=== PATIENT | female | born 1975 | race African-American/Black ===

== ENCOUNTER 2018-02-05 15:51 | Emergency (ER) | payer OTHER ==
[~2018-02-05] VITALS: Ht 170.2 cm; Wt 104.3 kg
[2018-02-05] MEDS ORDERED: HYDROcodone/APAP 5/325MG 1 TAB TABLET PO ONE (17:00)
[2018-02-05] MEDS ORDERED: IPRATRPIUM/ALBUTEROL 0.5/2.5MG 3 ML NEBU. NEB ONE (17:00)
[2018-02-05] MEDS ORDERED: HYDR115S2 PO (17:03)
[2018-02-05] MEDS ORDERED: AZIT250T PO (17:03)
--- NOTE | 2018-02-05 17:03 | PHYS DOC ---
Past History Past Medical History: No Pertinent History Past Surgical History: Alcohol Use: Rarely Drug Use: None Adult General Chief Complaint Chief Complaint: sore throat and nasal congestion HPI HPI Patient is a 43 year old female who presents with obtaining of his of congestion , sore throat, cough and shortness of breath for the last 3 days that gradually getting worse. Patient denies sick contact, fever and chills, nausea and vomiting, diarrhea and constipation, urinary symptom. Patient had a recent road trip to [place] and became sick the last night of her stay in [place]. Patient states she smokes half a pack of cigarettes a day. Review of Systems Review of Systems Constitutional: Denies fever or chills [] Eyes: Denies change in visual acuity, redness, or eye pain [] HENT: Reports nasal congestion or sore throat Respiratory: Reports cough and shortness of breath Cardiovascular: No additional information not addressed in HPI [] GI: Denies abdominal pain, nausea, vomiting, bloody stools or diarrhea [] : Denies dysuria or hematuria [] Musculoskeletal: Denies back pain or joint pain [] Integument: Denies rash or skin lesions [] Neurologic: Denies headache, focal weakness or sensory changes [] Endocrine: Denies polyuria or polydipsia [] All other systems were reviewed and found to be within normal limits, except as documented in this note. Current Medications Current Medications Current Medications Medications (Trade) Dose Ordered Sig/Penny Start Time Stop Time Status Last Admin Dose Admin Acetaminophen/ Hydrocodone Bitart (Lortab 5/325) 1 tab 1X ONCE 02/05/18 17:00 02/05/18 17:01 Albuterol/ Ipratropium (Duoneb) 3 ml 1X ONCE 02/05/18 17:00 02/05/18 17:01 Allergies Allergies Allergies Coded Allergies Type Severity Reaction Last Updated Verified No Known Drug Allergies 12/28/15 No Physical Exam Physical Exam Constitutional: Well developed, well nourished, mild distress, non-toxic appearance. [] HENT: Normocephalic, atraumatic, bilateral external ears normal, oropharynx moist, pharyngeal erythema, no oral exudates, nose normal. [] Eyes: PERRLA, EOMI, conjunctiva normal, no discharge. [] Neck: Normal range of motion, no tenderness, supple, no stridor. [] Cardiovascular:Heart rate regular rhythm, no murmur [] Lungs & Thorax: Bilateral breath sounds clear to auscultation [] Abdomen: Bowel sounds normal, soft, no tenderness, no masses, no pulsatile masses. [] Skin: Warm, dry, no erythema, no rash. [] Back: No tenderness, no CVA tenderness. [] Extremities: No tenderness, no cyanosis, no clubbing, ROM intact, no edema. [] Neurologic: Alert and oriented X 3, normal motor function, normal sensory function, no focal deficits noted. [] Psychologic: Affect normal, judgement normal, mood normal. [] Current Patient Data Vital Signs Vital Signs Date Time Temp Pulse Resp B/P (MAP) Pulse Ox O2 Delivery O2 Flow Rate FiO2 02/05/18 15:55 98.1 89 20 100 Room Air EKG EKG [] Radiology/Procedures Radiology/Procedures [] Course & Med Decision Making Course & Med Decision Making discharge: I've spoken with the patient and/or caregivers. I've explained the patient's condition, diagnosis and treatment plan based on information available to me at this time. I've answered the patient's and/or caregivers questions and addressed any concerns. The patient and/or caregivers have a good understanding the patient's diagnosis, condition and treatment plan as can be expected at this point. Vital signs have been stabilized. The patient's condition is stable for discharge from the emergency department. The patient will pursue further outpatient evaluation with her primary care provider or other designated consulting physician as outlined in the discharge instructions. Patient and/or caregivers are agreeable to this plan of care and follow-up instructions have been explained in detail. The patient and/or caregivers have received these instructions in written format and expressed understanding of these discharge instructions. The patient and her caregivers are aware that if any significant change in condition or worsening of symptoms should prompt him to immediately return to this of the closest emergency department. If an emergent department is not readily available I would encourage him to call 911. Lisbeth Disclaimer Lisbeth Disclaimer This electronic medical record was generated, in whole or in part, using a voice recognition dictation system. Departure Departure: Impression: Primary Impression: Upper respiratory infection Additional Impressions: Tobacco abuse Tobacco abuse counseling Disposition: HOME, SELF-CARE (at 1715) Condition: STABLE Referrals: PCP,NO (PCP) Patient Instructions: Smoking Cessation, Tips For Success, Upper Respiratory Infection, Adult Additional Instructions: Drink plenty of liquids Follow-up with your primary care physician in 3-5 days Return to ER if not getting better Scripts Hydrocodone/Chlorphen P-Stirex (Tussionex Pennkinetic Susp) 115 Ml Ayleen.er.12h 5 ML PO BID, #60 ML Prov: BRINDA RODNEY MD 02/05/18 Azithromycin (ZITHROMAX) 250 Mg Tablet 1 PKG PO UD, #1 PKG Prov: BRINDA RODNEY MD 02/05/18 Problem Qualifiers BRINDA RODNEY MD Feb 05, 2018 17:03
[2018-02-05 18:39] VITALS: BP 135/69
== END 2018-02-05 17:34 | disposition home or self-care (01) ==
LOC: ER 15:51
DX: J06.9 Acute upper respiratory infection, unspecified (principal); F17.210 Nicotine dependence, cigarettes, uncomplicated; Z71.6 Tobacco abuse counseling
CPT/HCPCS: 94640; 99283; J7620

== ENCOUNTER 2018-04-24 19:02 | Emergency (ER) | payer OTHER ==
[~2018-04-24] VITALS: Ht 167.6 cm; Wt 114.1 kg
[~2018-04-24 19:02] MED LIST: AZIT250T PO; HYDR115S2 PO
--- NOTE | 2018-04-24 19:07 | ED.ADGEN ---
Past History Past Medical History: No Pertinent History, GERD, Other Past Surgical History: Smoking: Cigarettes Alcohol Use: Rarely Drug Use: None Adult General Chief Complaint Chief Complaint ".. I ve been having this Rt. upper stomach and chest pain..,. it been much worse the last couple to 3 days.. but really bad tonight.... My dad had colon cancer... so I got scared...".. " I do have times I get constipated..."... " but I did get a stool to day and had some gas..." HPI HPI Patient is a 43 year old female who presents with above hx and complaints of right upper abdomen pain that radiates to her right shoulder. Patient has had this pain before but seemed more severe tonight. Patient does report frequent episodes of constipation particularly when she is not careful about her diet. Patient did have [place] food at 1500 hrs. today. No history of bad food intake. No history of travel. No history of specific ill contacts. Patient does smoke. Patient has had a previous colonoscopy and EGD some years ago. These tests were reportedly negative. Patient has had a previous . No history of trauma. Denies any vaginal discharge or history of STDs. Patient father had a history of frequent polyps and colon cancer. There is no family history in close relatives of known gallbladder disease. Patient has been taking Tylenol for her pain but tonight it did not relieve her pain. Review of Systems Review of Systems Constitutional: Denies fever or chills [] Eyes: Denies change in visual acuity, redness, or eye pain [] HENT: Denies nasal congestion or sore throat [] Respiratory: Denies cough or shortness of breath [] Cardiovascular: No additional information not addressed in HPI [] GI:Complaints of abdominal pain, nausea. Denies vomiting, bloody stools or diarrhea [] : Denies dysuria or hematuria [] Musculoskeletal: Denies back pain or joint pain [] Integument: Denies rash or skin lesions [] Neurologic: Denies headache, focal weakness or sensory changes [] Endocrine: Denies polyuria or polydipsia [] All other systems were reviewed and found to be within normal limits, except as documented in this note. Family History Family History Father has had colon cancer Current Medications Current Medications Current Medications Medications (Trade) Dose Ordered Sig/Penny Start Time Stop Time Status Last Admin Dose Admin Ceftriaxone Sodium 1 gm/ Sodium Chloride 50 ml @ 100 mls/hr 1X ONCE 04/24/18 22:45 04/24/18 23:15 DC 04/24/18 22:31 100 MLS/HR Ceftriaxone Sodium (Rocephin) 1 gm STK-MED ONCE 04/24/18 22:17 04/24/18 22:18 DC Famotidine (Pepcid Vial) 20 mg 1X ONCE 04/24/18 20:00 04/24/18 20:01 DC 04/24/18 19:59 20 MG Info (Do NOT chart on this entry -- for MONITORING) 1 each PRN DAILY PRN 04/24/18 20:15 04/24/18 23:37 DC Iohexol (Omnipaque 240 Mg/ml) 30 ml 1X ONCE 04/24/18 20:00 04/24/18 20:01 DC 04/24/18 21:23 30 ML Iohexol (Omnipaque 300 Mg/ml) 75 ml 1X ONCE 04/24/18 20:00 04/24/18 20:01 DC 04/24/18 21:23 75 ML Lactated Ringer's 1,000 ml @ 1,000 mls/hr Q1H 04/24/18 19:33 04/24/18 20:33 DC 04/24/18 19:59 1,000 MLS/HR Magnesium Hydroxide (Milk Of Magnesia) 2,400 mg 1X ONCE 04/24/18 20:00 04/24/18 20:01 DC 04/24/18 20:00 2,400 MG Metronidazole 100 ml @ 100 mls/hr 1X ONCE 04/24/18 23:00 04/24/18 23:37 DC 04/24/18 23:20 100 MLS/HR Ondansetron HCl (Zofran) 8 mg 1X ONCE 04/24/18 20:00 04/24/18 20:01 DC 04/24/18 19:59 8 MG Sodium Chloride 50 ml @ As Directed STK-MED ONCE 04/24/18 22:16 04/24/18 22:18 DC See nursing for home meds Allergies Allergies Allergies Coded Allergies Type Severity Reaction Last Updated Verified No Known Drug Allergies 12/28/15 No Physical Exam Physical Exam Constitutional: Moderately acute distress, non-toxic appearance. [] HENT: Normocephalic, atraumatic, bilateral external ears normal, oropharynx moist, no oral exudates, nose normal. [] Eyes: PERRLA, EOMI, conjunctiva normal, no discharge. [] Neck: Normal range of motion, no tenderness, supple, no stridor. [] Cardiovascular:Heart rate regular rhythm, no murmur [] Lungs & Thorax: Bilateral breath sounds equal apex with scattered wheezes on auscultation [] Abdomen: Bowel sounds normal, soft, epigastric and right upper quadrant tenderness, no masses, no pulsatile masses. Declines rectal exam at this time. No psoas sign. Does have old scar. Does have rebound to right upper and mid quadrant. Distended. Skin: Warm, dry, no erythema, no rash. [] Back: No tenderness, no CVA tenderness. [] Extremities: No tenderness, no cyanosis, no clubbing, ROM intact, no edema. [] No cording noted. Neurologic: Alert and oriented X 3, normal motor function, normal sensory function, no focal deficits noted. [] Psychologic: Affect anxious, judgement normal, mood normal. [] Current Patient Data Vital Signs Vital Signs Date Time Temp Pulse Resp B/P (MAP) Pulse Ox O2 Delivery O2 Flow Rate FiO2 04/24/18 23:27 85 18 132/71 (91) 100 Room Air 04/24/18 19:02 98.2 Lab Results Laboratory Tests Test 04/24/18 19:25 04/24/18 19:34 04/24/18 19:55 Urine Collection Type Unknown Urine Color Yellow Urine Clarity Clear Urine pH 7.0 Urine Specific [place] 1.020 Urine Protein Neg (NEG-TRACE) Urine Glucose (UA) Neg mg/dL (NEG) Urine Ketones (Stick) Neg mg/dL (NEG) Urine Blood Neg (NEG) Urine Nitrite Neg (NEG) Urine Bilirubin Neg (NEG) Urine Urobilinogen Dipstick 0.2 mg/dL (0.2 mg/dL) Urine Leukocyte Esterase Neg (NEG) Urine RBC 6-10 /HPF (0-2) Urine WBC 1-4 /HPF (0-4) Urine Squamous Epithelial Cells Many /LPF Urine Bacteria 0 /HPF (0-FEW) Urine Mucus Slight /LPF Urine Opiates Screen Neg (NEG) Urine Methadone Screen Neg (NEG) Urine Barbiturates Neg (NEG) Urine Phencyclidine Screen Neg (NEG) Urine Amphetamine/Methamphetamine Neg (NEG) Urine Benzodiazepines Screen Neg (NEG) Urine Cocaine Screen Neg (NEG) Urine Cannabinoids Screen Neg (NEG) Urine Ethyl Alcohol Neg (NEG) POC Urine HCG, Qualitative hcg negative (Negative) White Blood Count 12.2 x10^3/uL (4.0-11.0) H Red Blood Count 3.21 x10^6/uL (3.50-5.40) L Hemoglobin 9.5 g/dL (12.0-15.5) L Hematocrit 29.4 % (36.0-47.0) L Mean Corpuscular Volume 91 fL (79-100) Mean Corpuscular Hemoglobin 30 pg (25-35) Mean Corpuscular Hemoglobin Concent 32 g/dL (31-37) Red Cell Distribution Width 14.9 % (11.5-14.5) H Platelet Count 486 x10^3/uL (140-400) H Neutrophils (%) (Auto) 72 % (31-73) Lymphocytes (%) (Auto) 18 % (24-48) L Monocytes (%) (Auto) 4 % (0-9) Eosinophils (%) (Auto) 5 % (0-3) H Basophils (%) (Auto) 0 % (0-3) Neutrophils # (Auto) 8.8 x10^3uL (1.8-7.7) H Lymphocytes # (Auto) 2.2 x10^3/uL (1.0-4.8) Monocytes # (Auto) 0.5 x10^3/uL (0.0-1.1) Eosinophils # (Auto) 0.6 x10^3/uL (0.0-0.7) Basophils # (Auto) 0.0 x10^3/uL (0.0-0.2) Sodium Level 140 mmol/L (136-145) Potassium Level 4.0 mmol/L (3.5-5.1) Chloride Level 103 mmol/L (98-107) Carbon Dioxide Level 26 mmol/L (21-32) Anion Gap 11 (6-14) Blood Urea Nitrogen 14 mg/dL (7-20) Creatinine 0.8 mg/dL (0.6-1.0) Estimated GFR (Cockcroft-Gault) 94.7 Glucose Level 112 mg/dL (70-99) H Calcium Level 8.8 mg/dL (8.5-10.1) Total Bilirubin 0.2 mg/dL (0.2-1.0) Direct Bilirubin 0.1 mg/dL (0.0-0.2) Aspartate Amino Transferase (AST) 24 U/L (15-37) Alanine Aminotransferase (ALT) 24 U/L (14-59) Alkaline Phosphatase 62 U/L (46-116) Creatine Kinase 122 U/L (26-192) Troponin I Quantitative < 0.017 ng/mL (0-0.055) Total Protein 7.7 g/dL (6.4-8.2) Albumin 3.1 g/dL (3.4-5.0) L Amylase Level 53 U/L (25-115) Lipase 80 U/L (73-393) EKG EKG My interpretation EKG shows a sinus rhythm at 63 bpm. There is right axis deviation. Some nonspecific changes but no findings of acute STEMI with contralateral changes- low voltage[] Radiology/Procedures Radiology/Procedures I interpretation of acute abdomen film shows some basilar atelectasis. No acute cardiopulmonary findings. No free air in the diaphragm. There is increased stool in right colon. CT of abdomen reported out as terminal ileitis-pending. Visualized. Does have findings of a left adnexal cyst. Small amount of free fluid.[] No obvious hydronephrosis. See formal report when available. Course & Med Decision Making Course & Med Decision Making Pertinent Labs and Imaging studies reviewed. (See chart for details) Discussed options of tx. with Pt. , her sister, Dr. Rodriguez and Dr. Charlton. Pt. to be transfer to [facility]. Repeat CT in AM. Keep NPO. [] Final Impression Final Impression 1. Abdomen pain 2. Terminal Ileitis?? 3. Constipation 4. Leukocytosis 12.2 5. Anemia 9.5 6. Lt Adnexal Cyst 7. Hematuria [] Dragon Disclaimer Dragon Disclaimer This electronic medical record was generated, in whole or in part, using a voice recognition dictation system. SADIQ MARKS MD Apr 24, 2018 19:07
[2018-04-24] MEDS ORDERED: IV RINGERS SOLUTION,LACTATED 1,000 ML IV SCH (19:33)
[2018-04-24] MEDS ORDERED: IOHEXOL 240 MG/ML 50ML VIAL. PO ONE (20:00)
[2018-04-24] MEDS ORDERED: MAGNESIUM HYDROXIDE 2,400 MG/30 ML ORAL.SUSP. PO ONE (20:00)
[2018-04-24] MEDS ORDERED: FAMOTIDINE 20 MG/2 ML VIAL IVP ONE (20:00)
[2018-04-24] MEDS ORDERED: IOHEXOL 300 MG/ML 75 ML VIAL. IV ONE (20:00)
[2018-04-24] MEDS ORDERED: ONDANSETRON PF 4 MG/2 ML VIAL. IV ONE (20:00)
[2018-04-24 20:06] LABS: AMPHETAMINE/METHAMPHETAMINE NEG (NEG); BARBITURATES NEG (NEG); BENZODIAZEPINES NEG (NEG); CANNABINOIDS NEG (NEG); COCAINE NEG (NEG); METHADONE NEG (NEG); OPIATES NEG (NEG); PHENCYCLIDINE NEG (NEG)
[2018-04-24] MEDS ORDERED: CONTRAST GIVEN MC PRN (20:15)
[2018-04-24 20:18] LABS: BACTERIA,URINE 0 /HPF (0-FEW); BILIRUBIN,URINE NEG (NEG); CLARITY,URINE CLEAR; COLOR,URINE YELLOW; GLUCOSE,URINE NEG (NEG); NITRITE,URINE NEG (NEG); SQUAMOUS EPITHELIAL CELL,UR MANY /LPF; UROBILINOGEN,URINE 0.2 mg/dL (0.2 mg/dL)
[2018-04-24 20:22] LABS: BASO % 0 % (0-3); EOS # 0.6 x10^3/uL (0.0-0.7); EOS % 5 % (0-3); HEMATOCRIT 29.4 % (36.0-47.0); HEMOGLOBIN 9.5 g/dL (12.0-15.5); LYMPH # 2.2 x10^3/uL (1.0-4.8); LYMPH % 18 % (24-48); MEAN CORPUSCULAR HEMOGLOBIN 30 pg (25-35); MEAN CORPUSCULAR HGB CONC 32 g/dL (31-37); MEAN CORPUSCULAR VOLUME 91 fL (79-100); MONO # 0.5 x10^3/uL (0.0-1.1); MONO % 4 % (0-9); NEUT # 8.8 x10^3uL (1.8-7.7); NEUT % 72 % (31-73); PLATELET COUNT 486 x10^3/uL (140-400); RED BLOOD COUNT 3.21 x10^6/uL (3.50-5.40); RED CELL DISTRIBUTION WIDTH 14.9 % (11.5-14.5); WHITE BLOOD COUNT 12.2 x10^3/uL (4.0-11.0)
[2018-04-24 20:42] LABS: ALBUMIN 3.1 g/dL (3.4-5.0); CALCIUM 8.8 mg/dL (8.5-10.1); CREATININE 0.8 mg/dL (0.6-1.0); DIRECT BILIRUBIN 0.1 mg/dL (0.0-0.2); GFR 94.7; TOTAL BILIRUBIN 0.2 mg/dL (0.2-1.0); TOTAL PROTEIN 7.7 g/dL (6.4-8.2)
--- NOTE | 2018-04-24 21:59 | RAD ---
MRI Brain without contrast History: Right-sided abdominal pain, constipation for 2 weeks Technique: Multiplanar, multisequential noncontrast MR imaging was performed of the brain. Comparison: None Findings: There is mild atelectasis of the right lower lobe near the lung base. No significant focal abnormality is identified of the liver or spleen other than some scattered granulomas. No significant focal abnormality is identified of the pancreas or gallbladder. There is no adrenal nodularity. Both kidneys enhance, no hydronephrosis. Entirety of the bowel is not opacified with contrast. There is likely wall thickening of the terminal ileum, also possibly of other segments of small bowel in the right abdomen. Appendix cannot be clearly identified. There is retained stool greater in the right colon. There is some strandy change of the mesentery somewhat diffusely more inferiorly of the abdomen. There may be a small umbilical fascial defect, no bowel. There is a hyperdense or enhancing mass of the left uterus about 1.4 cm. There is also heterogeneity and possible partially cystic mass of the left adnexal region, somewhat difficult to further evaluate given adjacent bowel, possibly soft tissue component of the mass. This is difficult to measure, overall dimension of possibly about 4.9 cm transverse by 4.3 cm AP by 3.8 cm although measurement likely includes component of the ovary. There may be a small right adnexal cyst. There is no free air. There is trace free fluid in the pelvis. Impression: 1. There is likely wall thickening of the terminal ileum as may be seen with terminal ileitis, also probably some other small bowel wall thickening in the right abdomen. Appendix is not clearly identified to exclude acute appendicitis by imaging. There is retained stool greater of the right colon. 2. Somewhat poorly evaluated due to adjacent nonopacified bowel, there is probable partially cystic mass of the left adnexal region and probable small right adnexal cyst. There is trace free fluid in the pelvis. Electronically signed by: Adrien Ortiz MD (04/24/2018 9:56 PM) [facility]
[2018-04-24] MEDS ORDERED: IV NORMAL SALINE 50ML 50 ML ONE (22:16)
[2018-04-24] MEDS ORDERED: cefTRIAXone SODIUM 1 GM VIAL IV ONE (22:17)
[2018-04-24 23:27] VITALS: BP 132/71
--- NOTE | 2018-04-24 23:56 | RAD ---
ACUTE ABDOMEN SERIES History: Right sided abdomen pain, constipation Comparison: None. Findings: Single view of the chest, single upright view of the abdomen, and 2 supine AP views of the abdomen are submitted. There is retained stool greater of the right colon. There is no free air. There is no dependent pleural fluid. There is likely atelectasis right lung base. Impression: 1. There is likely atelectasis right lung base. There is retained stool greater of the right colon. Electronically signed by: Adrien Ortiz MD (04/24/2018 11:52 PM) [facility]
--- NOTE | 2018-04-25 23:14 | EKG ---
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
== END 2018-04-24 23:34 | disposition short-term general hospital (02) ==
LOC: ER 19:02
DX: K59.00 Constipation, unspecified (principal); D72.829 Elevated white blood cell count, unspecified; D64.9 Anemia, unspecified; R31.9 Hematuria, unspecified; R19.09 Other intra-abdominal and pelvic swelling, mass and lump; K21.9 Gastro-esophageal reflux disease without esophagitis; F17.210 Nicotine dependence, cigarettes, uncomplicated
CPT/HCPCS: 36415; 74022; 74177; 80048; 80076; 80307; 81001; 81025; 82150; 82550; 83690; 84484; 85025; 93005; 96365; 96375; 99285; J0696; J2405; J3490; J7120; Q9966; Q9967